=== PATIENT | female | born 1950 | race Caucasian/White ===

== ENCOUNTER → 2021-03-26 14:25 | Outpatient (CLI) | payer OTHER, SELFPAY ==
[2021-03-31 12:08] LABS: Clam <0.10 kU/L (Class 0); Codfish <0.10 kU/L (Class 0); Corn <0.10 kU/L (Class 0); Egg, White <0.10 kU/L (Class 0); Milk (Cow) <0.10 kU/L (Class 0); Peanut <0.10 kU/L (Class 0); SCALLOP <0.10 kU/L (Class 0); Shrimp <0.10 kU/L (Class 0); Soybean <0.10 kU/L (Class 0); Walnut, (Food) <0.10 kU/L (Class 0); Wheat <0.10 kU/L (Class 0)
[2021-03-31 18:18] LABS: SESAME SEED <0.10 kU/L (Class 0)
== END ==
PROVIDERS: PCP Family Medicine; Referring Provider Otolaryngology; Visit Provider Otolaryngology
DX: T78.40XA Allergy, unspecified, initial encounter (principal)
CPT/HCPCS: 36415; 86003

== ENCOUNTER → 2021-09-17 14:27 | Outpatient (CLI) | payer OTHER, SELFPAY ==
[2021-09-17 18:04] LABS: Absolute Lymphocyte Count 1.84 X10^3/uL (0.83-4.51); Absolute Neutrophil Count 4.1 X10^3/uL (2.0-7.7); Basophil# 0.04 X10^3/uL; Basophil% 0.6 % (0-1); Eosinophil# 0.29 X10^3/uL; Eosinophils% 4.1 % (0-5); Hematocrit 39.7 % (37-47); Hemoglobin 13.5 g/dL (12.0-15.0); Lymphocyte # 1.84 X10^3/ul (0.83-4.51); Lymphocyte % 26.2 % (19-41); Mean Corpuscular Hgb 35.8 pg (27.0-32.0); Mean Corpuscular Volume 105.3 fL (81-99); Mean Platelet Vol. 10.2 fl (6.2-12.0); NRBC Flagged by Analyzer 0 % (0-5); Neutrophil # 4.14 X10^3/uL (2.7-7.7); Neutrophil % 58.8 % (47-70); Platelet Count 222 K/mm3 (150-450); RBC Distribution Width CV 12.1 % (11.6-14.6); RBC Distribution Width SD 47.2 fl (35.1-43.9); Red Blood Count 3.77 M/mm3 (4.2-5.4)
[2021-09-17 18:28] LABS: ALB/GLOB Ratio 0.8 RATIO (0.9-2.4); AST(SGOT) 16 U/L (15-37); Alanine Aminotransfer ALT/SGPT 32 U/L (13-56); Albumin, Serum 3.5 g/dL (3.2-5.0); Alkaline Phosphatase 111 U/L (45-117); Anion Gap 5 (5-15); BUN 29 mg/dL (7-18); BUN/Creat Ratio 32.8 RATIO (10-20); Calcium,Total 9.2 mg/dL (8.5-10.1); Chloride 108 mmol/L (98-107); Creatinine, Serum 0.88 mg/dL (0.55-1.02); EST Glomerular Filtration Rate 67 mL/min (>60); Est Glom Filt Rate - Afr Amer 81 mL/min (>60); Globulin 4.2 g/dL (2.2-4.2); Glucose 82 mg/dL (74-106); Potassium 3.9 mmol/L (3.5-5.1); Protein, Total 7.7 g/dL (6.4-8.2); Rheumatoid Factor < 10.0 IU/mL (<15); Sodium Level 141 mmol/L (136-145)
[2021-09-18 09:49] LABS: Hepatitis B Surface Antibody Non-Reactive; Hepatitis B Surface Antigen Non-Reactive (Nonreactive); Hepatitis C Antibody Non-Reactive (Nonreactive)
[2021-09-22 21:29] LABS: CCP IgG Antibodies 137 units (0-19)
== END ==
PROVIDERS: PCP Family Medicine; Referring Provider Internal Medicine Rheumatology; Visit Provider Internal Medicine Rheumatology
DX: M06.4 Inflammatory polyarthropathy (principal); M79.7 Fibromyalgia; M19.041 Primary osteoarthritis, right hand; M18.0 Bilateral primary osteoarthritis of first carpometacarpal joints; M17.0 Bilateral primary osteoarthritis of knee; M47.897 Other spondylosis, lumbosacral region; H35.30 Unspecified macular degeneration; K21.9 Gastro-esophageal reflux disease without esophagitis; J30.9 Allergic rhinitis, unspecified; N20.0 Calculus of kidney; K57.90 Diverticulosis of intestine, part unspecified, without perforation or abscess without bleeding
CPT/HCPCS: 36415; 80053; 85025; 86200; 86431; 86706; 86803; 87340

== ENCOUNTER → 2022-03-13 | Outpatient (CLI) | payer MEDICARE, SELFPAY ==
[2022-03-13 17:36] LABS: Absolute Lymphocyte Count 1.63 X10^3/uL (0.83-4.51); Basophil# 0.04 X10^3/uL; Basophil% 0.5 % (0-1); Eosinophil# 0.23 X10^3/uL; Eosinophils% 2.9 % (0-5); Hematocrit 37.6 % (37-47); Hemoglobin 12.6 g/dL (12.0-15.0); Lymphocyte # 1.63 X10^3/ul (0.83-4.51); Lymphocyte % 20.5 % (19-41); Mean Corp Hgb Conc 33.5 g/dL (32-36); Mean Corpuscular Hgb 36.8 pg (27.0-32.0); Mean Corpuscular Volume 109.9 fL (81-99); Mean Platelet Vol. 9.9 fl (6.2-12.0); Monocyte# 0.97 X10^3/uL; Monocyte% 12.2 % (0-10); NRBC Flagged by Analyzer 0 % (0-5); Neutrophil # 5.04 X10^3/uL (2.7-7.7); Neutrophil % 63.5 % (47-70); Platelet Count 231 K/mm3 (150-450); RBC Distribution Width CV 13.4 % (11.6-14.6); Red Blood Count 3.42 M/mm3 (4.2-5.4); White Blood Count 7.9 K/mm3 (4.4-11.0)
[2022-03-13 17:48] LABS: ALB/GLOB Ratio 0.9 RATIO (0.9-2.4); AST(SGOT) 20 U/L (15-37); Alanine Aminotransfer ALT/SGPT 29 U/L (13-56); Albumin, Serum 3.3 g/dL (3.2-5.0); Alkaline Phosphatase 91 U/L (45-117); Anion Gap 6 (5-15); BUN 25 mg/dL (7-18); BUN/Creat Ratio 22.9 RATIO (10-20); Calcium,Total 9.3 mg/dL (8.5-10.1); Chloride 108 mmol/L (98-107); Creatinine, Serum 1.09 mg/dL (0.55-1.02); EST Glomerular Filtration Rate 52 mL/min (>60); Est Glom Filt Rate - Afr Amer 63 mL/min (>60); Globulin 3.6 g/dL (2.2-4.2); Glucose 94 mg/dL (74-106); Potassium 3.9 mmol/L (3.5-5.1); Protein, Total 6.9 g/dL (6.4-8.2); Sodium Level 141 mmol/L (136-145)
== END | disposition home or self-care (01) ==
PROVIDERS: PCP Family Medicine; Referring Provider Internal Medicine Rheumatology; Visit Provider Internal Medicine Rheumatology
DX: M06.09 Rheumatoid arthritis without rheumatoid factor, multiple sites (principal); M79.7 Fibromyalgia; M19.041 Primary osteoarthritis, right hand; M18.0 Bilateral primary osteoarthritis of first carpometacarpal joints; M17.0 Bilateral primary osteoarthritis of knee; M47.897 Other spondylosis, lumbosacral region; H35.30 Unspecified macular degeneration; K21.9 Gastro-esophageal reflux disease without esophagitis; J30.9 Allergic rhinitis, unspecified; N20.0 Calculus of kidney; K57.90 Diverticulosis of intestine, part unspecified, without perforation or abscess without bleeding; Z96.652 Presence of left artificial knee joint; Z79.899 Other long term (current) drug therapy
CPT/HCPCS: 36415; 80053; 85025

== ENCOUNTER → 2022-10-26 | Outpatient (CLI) | payer MEDICARE, SELFPAY ==
[2022-10-26 12:16] LABS: Absolute Lymphocyte Count 1.22 X10^3/uL (0.83-4.51); Absolute Neutrophil Count 3.6 X10^3/uL (2.0-7.7); Basophil# 0.05 X10^3/uL; Basophil% 0.9 % (0-1); Eosinophil# 0.13 X10^3/uL; Eosinophils% 2.3 % (0-5); Hemoglobin 12.5 g/dL (12.0-15.0); Lymphocyte # 1.22 X10^3/ul (0.83-4.51); Lymphocyte % 21.6 % (19-41); Mean Corp Hgb Conc 32.9 g/dL (32-36); Mean Corpuscular Hgb 36.2 pg (27.0-32.0); Mean Corpuscular Volume 110.1 fL (81-99); Mean Platelet Vol. 10.5 fl (6.2-12.0); Monocyte# 0.65 X10^3/uL; Monocyte% 11.5 % (0-10); NRBC Flagged by Analyzer 0 % (0-5); Neutrophil # 3.57 X10^3/uL (2.7-7.7); Neutrophil % 63.3 % (47-70); Platelet Count 243 K/mm3 (150-450); RBC Distribution Width CV 13.1 % (11.6-14.6); RBC Distribution Width SD 51.6 fl (35.1-43.9); Red Blood Count 3.45 M/mm3 (4.2-5.4); White Blood Count 5.6 K/mm3 (4.4-11.0)
[2022-10-26 12:43] LABS: ALB/GLOB Ratio 0.9 RATIO (0.9-2.4); AST(SGOT) 20 U/L (15-37); Alanine Aminotransfer ALT/SGPT 23 U/L (13-56); Albumin, Serum 3.3 g/dL (3.2-5.0); Alkaline Phosphatase 86 U/L (45-117); Anion Gap 7 (5-15); BUN 22 mg/dL (7-18); BUN/Creat Ratio 19.3 RATIO (10-20); Calcium,Total 9.3 mg/dL (8.5-10.1); Chloride 107 mmol/L (98-107); Creatinine, Serum 1.14 mg/dL (0.55-1.02); EST Glomerular Filtration Rate 50 mL/min (>60); Est Glom Filt Rate - Afr Amer 60 mL/min (>60); Globulin 3.5 g/dL (2.2-4.2); Glucose 93 mg/dL (74-106); Potassium 4.2 mmol/L (3.5-5.1); Protein, Total 6.8 g/dL (6.4-8.2); Sodium Level 139 mmol/L (136-145)
== END | disposition home or self-care (01) ==
PROVIDERS: PCP Family Medicine; Referring Provider Internal Medicine Rheumatology; Visit Provider Internal Medicine Rheumatology
DX: M06.09 Rheumatoid arthritis without rheumatoid factor, multiple sites (principal); M79.7 Fibromyalgia; M19.041 Primary osteoarthritis, right hand; M18.0 Bilateral primary osteoarthritis of first carpometacarpal joints; M17.0 Bilateral primary osteoarthritis of knee; M47.897 Other spondylosis, lumbosacral region; H35.30 Unspecified macular degeneration; K21.9 Gastro-esophageal reflux disease without esophagitis; J30.9 Allergic rhinitis, unspecified; N20.0 Calculus of kidney; K57.90 Diverticulosis of intestine, part unspecified, without perforation or abscess without bleeding; Z79.899 Other long term (current) drug therapy
CPT/HCPCS: 36415; 80053; 85025

== ENCOUNTER → 2023-10-19 | Outpatient (CLI) | payer MEDICARE, SELFPAY ==
--- NOTE | 2023-10-19 10:25 | MASS_PTH ---
PATHOLOGY RESULTS PATIENT: YOLANDA HERNANDEZ [facility] U#:[id number] AGE/SX: 73/F ROOM: RE10/19/[address]: Dr. Baljinder Plata MD : 1950 BED: DIS: 10/19/2023 SPEC #: [id number] RECD: 10/20/23 08:38 STATUS: ARIC COFFEY #: [id number] LORRIE: 10/19/23 10:[address]: Baljinder Plata DEPT: SURGICAL PATHOLOGY RECD BY: Alanna Thomas ENTERED: 10/20/23 08:39 SP TYPE: Mass OTHR DR: Dr. Paras Duncan MD [facility] Tissues: Neck, NOS Neck, NOS Procedures: Surgery Specimen Level IV HEADER OPERATION: Excision neck cysts PRE-OP DIAGNOSIS: Localized swelling, mass and lump neck TISSUE SUBMITTED: A - Right neck mass, B - Left neck mass MICROSCOPIC DIAGNOSIS A. Right neck mass, shave biopsy: A fragment of sin with underlying tissue with chronic inflammation and foreign body giant cell reaction. See comment. B. Left neck mass, biopsy: A piece of fibrous tissue with chronic inflammation and histiocytic reaction. See comment. SJ:sandi 10/21/2023 COMMENT A. No obvious cyst is identified. B. Findings may represent collapsed cyst. No epithelial lining is noted. Clinical correlation and appropriate follow up are necessary. Case has been reviewed in consultation with Dr. Bustos who concurs with the above diagnosis. IDC:AM MICROSCOPIC DESCRIPTION Slides are reviewed. GROSS DESCRIPTION A - Received in fixative is one container labeled with the patient's name and designated right neck mass. The specimen consists of a shave biopsy of knutson-white skin measuring 0.8 x 0.2 x 0.1 cm. The specimen is inked, serially sectioned and submitted entirely in one cassette. B - Received in fixative is one container labeled with the patient's name and designated left neck mass. The specimen consists of a piece of knutson soft tissue measuring 0.5 x 0.2 x 0.1 cm. The specimen is inked and submitted entirely in one cassette. / SHAHRIAR:sandi 10/20/2023 TC:5 CPT: 92573 x2
--- OUTSIDE RECORDS SUMMARY | 2023-10-19 15:40 | XMS RPT_ITS | CCD ---
Author Name Unknown Address [id number] [place] [address] Organization [facility] Care Team Providers Care Warehouse Shipping Receiving Clerk Name Role Phone Unavailable Primary Care Provider UnavailSTEPHANIE Alvarado MD Attending Unavailable STEPHANIE KAUFMAN MD Admitting Unavailable STEPHANIE KAUFMAN MD Primary Care Unavailable Johnny MAYO Consulting Unavailable PROVIDER, UNKNOWN Consulting Unavailable PROVIDER, UNKNOWN Consulting Unavailable PROVIDER, UNKNOWN Consulting Unavailable STEPHANIE KAUFMAN MD Attending Unavailable STEPHANIE KAUFMAN MD Admitting Unavailable STEPHANIE KAUFMAN MD Primary Care Unavailable Johnny MAYO Consulting Unavailable PROVIDER, UNKNOWN Consulting Unavailable PROVIDER, UNKNOWN Consulting Unavailable PROVIDER, UNKNOWN Consulting Unavailable LAKE HERNANDEZ NP Primary Care Unavailable LAKE HERNANDEZ NP Attending Unavailable LAKE HERNANDEZ NP Admitting Unavailable Johnny MAYO Consulting Unavailable PROVIDER, UNKNOWN Consulting Unavailable PROVIDER, UNKNOWN Consulting Unavailable PROVIDER, UNKNOWN Consulting Unavailable EDIS NAVARRETERY T Primary Care Unavailable EDIS NAVARRETERY T Attending Unavailable Johnny MAYO Consulting Unavailable PAZ NAVARRETECHARY T Admitting Unavailable PROVIDER, UNKNOWN Consulting Unavailable PROVIDER, UNKNOWN Consulting Unavailable PROVIDER, UNKNOWN Consulting Unavailable STEPHANIE KAUFMAN MD Admitting Unavailable STEPHANIE KAUFMAN MD Primary Care Unavailable STEPHANIE KAUFMAN MD Attending Unavailable Johnny MAYO Consulting Unavailable PROVIDER, UNKNOWN Consulting Unavailable PROVIDER, UNKNOWN Consulting Unavailable PROVIDER, UNKNOWN Consulting Unavailable SHIRLENE KEENAN Primary Care UnavailSHIRLENE Dunham Attending UnavailSHIRLENE Dunham Admitting Unavailseng e Johnny MAYO Consulting Unavailable PROVIDER, UNKNOWN Consulting Unavailable PROVIDER, UNKNOWN Consulting Unavailable PROVIDER, UNKNOWN Consulting Unavailable MARCELINO SMALLWOOD MD Primary Care Unavailable MARCELINO SMALLWOOD MD Attending Unavailable Johnny MAYO Consulting Unavailable MARCELINO SMALLWOOD MD Admitting Unavailable PROVIDER, UNKNOWN Consulting Unavailable PROVIDER, UNKNOWN Consulting Unavailable PROVIDER, UNKNOWN Consulting Unavailable MARCELINO SMALLWOOD MD Primary Care Unavailable MARCELINO SMALLWOOD MD Attending Unavailable Johnny MAYO Consulting Unavailable MARCELINO SMALLWOOD MD Admitting Unavailable PROVIDER, UNKNOWN Consulting Unavailable PROVIDER, UNKNOWN Consulting Unavailable PROVIDER, UNKNOWN Consulting Unavailable MARCELINO SMALLWOOD MD Primary Care Unavailable MARCELINO SMALLWOOD MD Attending Unavailable Johnny MAYO Consulting Unavailable MARCELINO SMALLWOOD MD Admitting Unavailable PROVIDER, UNKNOWN Consulting Unavailable PROVIDER, UNKNOWN Consulting Unavailable PROVIDER, UNKNOWN Consulting Unavailable Problems Problem Classification Problem Date Documented Da te Episodic/Chronic Other connective tissue disease (3 sources) Presence of left artificial shoulder joint; Translations: [Presence of left artificial shoulder joint] Onset: 02-18-2023 Chronic Results Test Name Value Interpretation Reference Range Facil ity Encounters Encounter Date Encounter Type Care Provider Facility Start: 10-12-2023 End: 10-12-2023 ambulatory SHIRLENE CRISOSTOMOREUBEN [facility] Start: 06-16-2023 End: 06-16-2023 [facility] Start: 05-03-2023 End: 05-03-2023 ambulatory LEONARDA NAVARRETE [facility] Start: 03-26-2023 End: 03-27-2023 ambulatory LAKE HERNANDEZ [facility] Start: 03-12-2023 End: 03-12-2023 ambulatory STEPHANIE KAUFMAN [facility] Start: 02-18-2023 End: 07-16-2023 ambulatory MARCELINO SMALLWOOD [facility] Start: 12-18-2022 ambulatory MARCELINO SMALLWOOD [facility] Start: 12-02-2022 End: 02-17-2023 ambulatory MARCELINO SMALLWOOD [facility] Start: 03-13-2021 End: 03-13-2021 Subsequent hospital visit by physician Provider [facility] Procedures Date Procedure Procedure Detail Performing Clinician Start: 03-13-2021 LOVE TONI W PARVEEN Fernando Work Phone: Payers Date Payer Category Payer Unknown [employer] [id number] 2000-Present Indemnity [id number] 1950 Unknown [id number] 1950 Unknown [id number] 1950 Unknown [id number] 1950 Unknown [id number] 1950 Unknown [id number] 1950 Unknown [id number] 1950 Unknown [id number] 1950 Unknown [id number] 1950 Unknown [id number] Medicare [id number] Medicare [id number] Social History Date Type Detail Facility Tobacco smoking status NHIS Unknown if ev er smoked [facility] Start: 1950 Sex Assigned At Not on file [facility] Summary Purpose Family History No Family History Records FoundNo Family History Records FoundNo Family History Records FoundNo Family History Records FoundNo Family History Records Found Advance Directives No Advanced Directives Records FoundNo Advanced Directives Records FoundNo Advanced Directives Records FoundNo Advanced Directives Records FoundNo Advanced Directives Records Found Additional Source Comments Source Comments (unrecognize d section and content) In the event this informatio n is protected by the Federal Confidentiality of Alcohol and Drug Abuse Patient Records regulations: The Federal rules restrict any use of the information to criminally investigate or prosecute any alcohol or drug abuse patient.[facility] the event this information is protected by the Federal Confidentiality of Alcohol and Drug Abuse Patient Records regulations: The Federal rules restrict any use of the information to criminally investigate or prosecute any alcohol or drug abuse patient.[facility] INFORMATION SOURCE (unrecogn ized section and content) DATE CREATED AUTHOR AUTHOR'S ORGANIZ ATION 02/28/2021 [facility] DATE CREATED AUTHOR AUTHOR'S ORGANIZ ATION 03/27/2021 [facility] DATE CREATED AUTHOR AUTHOR'S ORGANIZ ATION 06/24/2021 [facility] ([place]) DATE CREATED AUTHOR AUTHOR'S ORGANIZ ATION 10/13/2023 [facility] FOR RECORDS PERTAINING TO PATIENTS WHO ARE OR HAVE BEEN ENROLLED IN A CHEMICAL DEPENDENCY/SUBSTANCEABUSE PROGRAM, SOME INFORMATION MAY BE OMITTED. This clinical summary was aggregated from multiple sources. Caution should be exercised in using it in the provision of clinical care. This summary normalizes information from multiple sources, and as a consequence, information in this document may materially change the coding, format and clinical context of patient data. In addition, data may be omitted in some cases. CLINICAL DECISIONS SHOULD BE BASED ON THE PRIMARY CLINICAL RECORDS. [facility] [employer] [facility]. provides no warranty or guarantee of the accuracy or completeness of information in this document.
== END | disposition home or self-care (01) ==
LOC: LABSPEC 15:19
PROVIDERS: PCP Family Medicine; Referring Provider Otolaryngology; Visit Provider Otolaryngology
DX: R22.1 Localized swelling, mass and lump, neck (principal)
CPT/HCPCS: 88305

== ENCOUNTER → 2024-09-28 | Outpatient (CLI) | payer MEDICARE, SELFPAY ==
--- NOTE | 2024-09-28 10:50 | RAD_ITS ---
STUDY: X-RAY - PELVIS AND LEFT HIP REASON FOR EXAM: Female, 74 years old. L HIP PAIN TECHNIQUE: 3 views of the pelvis and left hip. COMPARISON: None. FINDINGS: There is a non-specific bowel gas pattern. Normal visualized soft tissue structures. Normal bilateral iliac wings, sacroiliac joints and visualized sacrum. Normal bilateral superior and inferior pubic rami. Normal pubic symphysis. Normal bilateral ischial tuberosities. Normal visualized femoral heads bilaterally. There is mild osteoarthritic spur formation of the acetabular rims bilaterally. There is moderate articular joint space narrowing of the left hip. There is no demonstrated acute fracture. RAD/HIP, UNI W/ Pelvis 2-3 Views IMPRESSION: Degenerative arthrosis of the hip joints bilaterally, left more pronounced than right. No demonstrated acute fracture. Electronically Signed: Julio Sanchez MD at 9:40 EST ,
== END | disposition home or self-care (01) ==
LOC: RAD 10:44
PROVIDERS: PCP Family Medicine; Referring Provider Anesthesiology; Visit Provider Anesthesiology
DX: M25.552 Pain in left hip (principal)
CPT/HCPCS: 73502

== ENCOUNTER → 2024-11-24 | Outpatient (CLI) | payer MEDICARE, SELFPAY ==
--- NOTE | 2024-11-24 10:14 | MRI_ITS ---
PROCEDURE: SPINE LUMBAR (ROUTINE) REASON FOR EXAM: Lumbar radiculopathy TECHNIQUE: Multisequence multiplanar MR imaging of the lumbar spine was performed without IV contrast. COMPARISON: None. FINDINGS: Variant lumbosacral anatomy with four lumbar type vertebral bodies suggested. For the purposes of this report, the last well-formed disc space will be assigned L4-S1. Vertebral body heights are preserved. Degenerative type marrow signal changes greatest from T11-L2. Heterogeneous background marrow signal without frankly destructive or discrete/suspicious bony lesion identified. Mild grade 1 anterolisthesis at L3-L4. Mild grade 1 retrolisthesis at L4-S1. Conus medullaris terminates normally at the L1-L2 disc level. Unremarkable appearance of the cauda equina. Diffuse disc desiccation with additional level by level findings as below: T12-L1: Diffuse disc bulging with cjtenwmw-io-azpgor loss of disc height. Mild facet arthropathy. No significant spinal canal or foraminal stenosis. L1-2: Diffuse disc bulging with mild/moderate loss of disc height. Mild facet arthropathy. Mild ligamentum flavum hypertrophy. No significant spinal canal or foraminal stenosis. L2-3: Diffuse disc bulging slightly asymmetric to the left with narrowing of the left lateral recess. Tiny superimposed left paracentral disc protrusion. Ligamentum flavum hypertrophy. Mild facet arthropathy. No significant spinal canal or foraminal stenosis. L3-4: Diffuse disc bulging with disc uncovering related to anterolisthesis as above. Ligamentum flavum hypertrophy. Utoztvza-wx-ipbboe focal spinal canal stenosis with incomplete effacement of CSF, spinal canal dimensions 1.0 x 1.8 cm AP by transverse. Facet arthropathy with small effusions. Narrowing of the bilateral lateral recesses. No significant foraminal stenosis. L4-5: Severe near-complete loss of disc height with diffuse disc bulging and disc uncovering related to retrolisthesis as above. No significant spinal canal or foraminal stenosis. Other: Diverticulosis and cervicothoracic spondylosis on the accounts receivable analyst, not well evaluated. Small right renal presumed cysts, incompletely evaluated. MRI/Spine Lumbar (Routine) IMPRESSION: 1. Note variant lumbosacral anatomy as described. Lumbar spondylosis as detail ed, including spinal canal stenoses up to nbxbkovz-tp-qopuab at L3-L4. No high-grade foraminal stenosis identified, blake kate there is narrowing of the lateral recesses on the left at L2-L3 and bilaterally at L3-L4. 2. Heterogeneous marrow signal. Correlate for possible causes of marrow recrui tment such as smoking, chronic anemia, chronic pulmonary disease, diabetes, or obesity. If unexplained, recommend clinical fo llow-up as an early infiltrative process may appear similarly however there is no clearly discrete or destructive/suspicious bony lesion identified. 3. Additional description as above. Reading Location: [id number]
== END | disposition home or self-care (01) ==
LOC: MRI 10:08
PROVIDERS: PCP Family Medicine; Referring Provider Anesthesiology; Visit Provider Anesthesiology
DX: M54.16 Radiculopathy, lumbar region (principal)
CPT/HCPCS: 72148